=== PATIENT | female | born 1995 | race American Indian/Alaskan Native ===

== ENCOUNTER 2017-04-02 10:48 | Emergency (ER) | payer OTHER ==
[2017-04-02 10:51] VITALS: BMI 31.8
[2017-04-02] MEDS ORDERED: Sodium Chloride 0.9% 1,000 ML IV STA (11:24)
--- NOTE | 2017-04-02 11:29 | ED PDOC ---
HPI: Abdomen Time Seen by Provider: 04/02/17 11:02 Chief Complaint (Nursing): Abdominal Pain Chief Complaint (Provider): Abdominal Pain History Per: Patient History/Exam Limitations: no limitations Onset/Duration Of Symptoms: Hrs (since this morning) Current Symptoms Are (Timing): Still Present Additional Complaint(s): 21y/o female presents to the ED complaining of vomiting and crampy abdominal pain. She states having 5 episodes of vomiting (non-bloody) since morning. Denies fever, sick contact, diarrhea or any further medical complaints. Past Medical History Reviewed: Historical Data, Nursing Documentation, Vital Signs Vital Signs: Last Vital Signs Temp 97 F L 04/02/17 14:08 Pulse 78 04/02/17 14:08 Resp 18 04/02/17 14:08 BP 130/78 04/02/17 14:08 Pulse Ox 98 04/02/17 14:08 - Family History Family History: States: Unknown Family Hx - Social History Current smoker - smoking cessation education provided: Yes (some days smoker) Alcohol: Social Drugs: Denies - Immunization History Hx Tetanus Toxoid Vaccination: Yes Hx Influenza Vaccination: Yes Hx Pneumococcal Vaccination: No - Home Medications Home Medications: Ambulatory Orders Medication Instructions Recorded Ibuprofen 1 tab PO TID PRN #30 tab 06/27/13 Hydrocortisone [Hydrocortisone 1% 30 ml TP BID #1 lot 12/05/14 Lotion 60 ml] Ibuprofen [Motrin] 400 mg PO Q6H PRN #20 tab 04/15/15 Ondansetron ODT [Zofran ODT] 4 mg PO Q8H PRN #20 odt 04/02/17 - Allergies Allergies/Adverse Reactions: Allergies Allergy/AdvReac Type Severity Reaction Status Date / Time No Known Allergies Allergy Unverified 06/27/13 10:48 Review of Systems ROS Statement: Except As Marked, All Systems Reviewed And Found Negative (As per HPI, otherwise negative) Constitutional: Negative for: Fever Gastrointestinal: Positive for: Vomiting, Abdominal Pain. Negative for: Diarrhea Physical Exam - Reviewed Nursing Documentation Reviewed: Yes Vital Signs Reviewed: Yes - Physical Exam Appears: Positive for: Non-toxic, No Acute Distress Head Exam: Positive for: ATRAUMATIC, NORMOCEPHALIC Skin: Positive for: Normal Color, Warm, Dry Eye Exam: Positive for: Normal appearance, EOMI, PERRL Neck: Positive for: Normal, Painless ROM, Supple Cardiovascular/Chest: Positive for: Regular Rate, Rhythm, Tachycardia. Negative for: Murmur Gastrointestinal/Abdominal: Negative for: Tenderness, Distended Neurologic/Psych: Positive for: Alert, Oriented (x3) - Laboratory Results Result Diagrams: 04/02/17 11:30 04/02/17 11:30 - ECG O2 Sat by Pulse Oximetry: 100 (RA) Pulse Ox Interpretation: Normal Medical Decision Making Medical Decision Making: Time: 11:24 Initial Impression: Gastritis Plan: CMP Lipase Urine dipstick CBC w/ diff Sodium chloride 1L IV Zofran 4mg IV Urinalysis Reevaluation Scribe Attestation: Documented by Juany Robert acting as a scribe for Manisha Hernandez MD. Scribe Attestation: All medical record entries made by the Scribe were at my direction and personally dictated by me. I have reviewed the chart and agree that the record accurately reflects my personal performance of the history, physical exam, medical decision making, and the department course for this patient. I have also personally directed, reviewed, and agree with the discharge instructions and disposition. Disposition - Clinical Impression Clinical Impression: Vomiting - Disposition Referrals: Billy Villegas MD [Family Provider] - Disposition: Routine/Home Disposition Time: 13:41 Condition: IMPROVED Prescriptions: Ondansetron ODT [Zofran ODT] 4 mg PO Q8H PRN #20 odt PRN Reason: Nausea/Vomiting Instructions: Acute Nausea and Vomiting (ED) Forms: [employer] ([place])
[2017-04-02 11:51] LABS: ALB/GLOB RATIO 1.4 (1.0-2.1); ALKALINE PHOSPHATASE 53 U/L (38-126); ALT/SGPT 45 U/L (9-52); AST/SGOT 34 U/L (14-36); BILIRUBIN,TOTAL 0.4 mg/dl (0.2-1.3); BLOOD UREA NITROGEN 7 mg/dl (7-17); CARBON DIOXIDE 25 mmol/L (22-30); CHLORIDE 108 mmol/L (98-107); GFR AFRICAN-AMERICAN > 60; GLUCOSE,RANDOM 101 mg/dL (65-105); LIPASE 109 U/L (23-300); POTASSIUM 4.2 MMOL/L (3.6-5.0); SODIUM 147 mmol/l (132-148); TOTAL PROTEIN 7.7 G/DL (6.3-8.2)
[2017-04-02 11:52] LABS: BASO % 0.4 % (0.0-2.0); EOS % 0.3 % (0.0-4.0); HEMATOCRIT 35.6 % (34.0-47.0); LYMPH # 1.3 K/uL (1.0-4.3); LYMPH % 15.3 % (20.0-40.0); MEAN CELL VOLUME 76.6 fl (81.0-99.0); MEAN CORPUSCULAR HEMOGLOBIN 24.6 pg (27.0-31.0); MEAN CORPUSCULAR HGB CONC 32.1 g/dL (33.0-37.0); MEAN PLATELET VOLUME 7.8 fl (7.2-11.7); MONO # 0.2 K/uL (0.0-0.8); NEUT # 6.7 K/uL (1.8-7.0); RED CELL DISTRIBUTION WIDTH 16.5 % (11.5-14.5); WHITE BLOOD COUNT 8.3 K/uL (4.8-10.8)
[2017-04-02 12:10] LABS: RBC URINE 1 /hpf (0-3); URINE BACTERIA RARE (<OCC); URINE BILIRUBIN NEGATIVE (NEGATIVE); URINE BLOOD MODERATE (NEGATIVE); URINE COLOR YELLOW (YELLOW); URINE GLUCOSE (UA) NEG (Normal); URINE KETONE NEGATIVE (NEGATIVE); URINE LEUKOCYTE ESTERASE TRACE Leu/uL (Negative); URINE PROTEIN 100 mg/dL (NEGATIVE); URINE UROBILINOGEN 0.2-1.0 mg/dL (0.2-1.0); WBC URINE 2 /hpf (0-5)
[2017-04-02 14:09] VITALS: BP 130/78; PULSE 78; RESP 18; TEMP 97
[2017-04-05 22:45] VITALS: O2SAT 100
== END 2017-04-02 14:10 | disposition home or self-care (01) ==
LOC: H.ER 10:48
DX: K52.9 Noninfective gastroenteritis and colitis, unspecified (principal)
CPT/HCPCS: 80053; 81003; 81025; 83690; 85025; 96374; 99282; J2405; J7040

== ENCOUNTER 2017-10-09 17:32 | Emergency (ER) | payer OTHER ==
[2017-10-09 18:34] VITALS: BP 114/73; PULSE 80; RESP 20; TEMP 97.9; O2SAT 100; BMI 33.8
--- NOTE | 2017-10-09 19:45 | ED PDOC ---
HPI: Allergic Reaction Time Seen by Provider: 10/09/17 18:39 Chief Complaint (Nursing): Allergic Reaction Chief Complaint (Provider): rash History Per: Patient History/Exam Limitations: no limitations Onset/Duration Of Symptoms: Days (2), Gradual, Persistent Associated Symptoms: Skin Rash, Swelling (lip) Additional Complaint(s): 22yo with eczema on multiple medications reporting rash on bilateral arms and lip swelling since yesterday. Recently started seeing paper grader and is currently taking Ketoconazole cream , lamotrigine cream, diflucan, minocycline. Reports that she also may have eaten tomato yesterday and may have an allergy to tomato. Past Medical History Reviewed: Historical Data, Nursing Documentation, Vital Signs Vital Signs: Last Vital Signs Temp 97.9 F 10/09/17 18:33 Pulse 80 10/09/17 18:33 Resp 20 10/09/17 18:33 BP 114/73 10/09/17 18:33 Pulse Ox 100 10/09/17 18:33 - Medical History Other PMH: Eczema - Surgical History Surgical History: No Surg Hx - Family History Family History: States: Unknown Family Hx - Immunization History Hx Tetanus Toxoid Vaccination: Yes Hx Influenza Vaccination: Yes Hx Pneumococcal Vaccination: No - Home Medications Home Medications: Ambulatory Orders Medication Instructions Recorded Ibuprofen 1 tab PO TID PRN #30 tab 06/27/13 Hydrocortisone [Hydrocortisone 1% 30 ml TP BID #1 lot 12/05/14 Lotion 60 ml] Ibuprofen [Motrin] 400 mg PO Q6H PRN #20 tab 04/15/15 Ondansetron ODT [Zofran ODT] 4 mg PO Q8H PRN #20 odt 04/02/17 DiphenhydrAMINE [Benadryl] 25 mg PO TID #20 cap 10/10/17 predniSONE [predniSONE Tab] 40 mg PO DAILY #8 tab 10/10/17 - Allergies Allergies/Adverse Reactions: Allergies Allergy/AdvReac Type Severity Reaction Status Date / Time No Known Allergies Allergy Unverified 10/10/17 00:03 Review of Systems ROS Statement: Except As Marked, All Systems Reviewed And Found Negative Constitutional: Negative for: Fever, Chills ENT: Positive for: Mouth Swelling. Negative for: Nose Discharge Skin: Positive for: Rash, Lesions Physical Exam - Reviewed Nursing Documentation Reviewed: Yes Vital Signs Reviewed: Yes - Physical Exam Appears: Positive for: No Acute Distress, Uncomfortable Head Exam: Positive for: ATRAUMATIC, NORMOCEPHALIC Skin: Positive for: Warm, Dry, Rash (dry erythema to bilateral upper arms, also with acne-like lesions to face and mild lower lip edema) Eye Exam: Positive for: EOMI, PERRL Respiratory: Positive for: Normal Breath Sounds. Negative for: Wheezing Extremity: Negative for: Pedal Edema, Deformity Lymphatic: Negative for: Adenopathy Neurologic/Psych: Positive for: Alert. Negative for: Motor/Sensory Deficits - ECG O2 Sat by Pulse Oximetry: 100 Disposition - Clinical Impression Clinical Impression: Eczema, Acute allergic reaction - Disposition Disposition: Left W/O Treatment Disposition Time: 19:56 Condition: UNKNOWN
[2017-10-10] MEDS ORDERED: DiphenhydrAMINE 50 mg/ml Inj ONE (03:26)
[2017-10-10] MEDS ORDERED: Famotidine 20mg/50ml 20 MG/50 ML BAG IVPB ONE (03:26)
== END 2017-10-09 19:20 | disposition home or self-care (01) ==
LOC: H.ER 17:32
DX: L30.9 Dermatitis, unspecified (principal); T78.40XA Allergy, unspecified, initial encounter

== ENCOUNTER 2017-10-09 23:56 | Emergency (ER) | payer OTHER ==
[2017-10-09 23:57] VITALS: BMI 33.8
[2017-10-10 00:06] VITALS: O2SAT 100
[2017-10-10] MEDS ORDERED: DiphenhydrAMINE 50 mg/ml Inj IVP STA (02:59)
[2017-10-10] MEDS ORDERED: Famotidine 20mg/50ml Premix IVPB STA (02:59)
--- NOTE | 2017-10-10 04:19 | ED PDOC ---
HPI: Allergic Reaction Time Seen by Provider: 10/10/17 01:59 Chief Complaint (Nursing): Allergic Reaction Chief Complaint (Provider): Allergic Reaction History Per: Patient History/Exam Limitations: no limitations Onset/Duration Of Symptoms: Days (x2) Current Symptoms Are (Timing): Still Present Additional Complaint(s): 22 y/o female with no significant pmhx, who presents to ED for evaluation of allergic reaction x2 days. Patient reports has been taking Topical Metronidazole and Topical Ketoconazole since 09/19 as prescribed by her Retort Loader for a facial rash. Patient also reports Monday afternoon she ate stuffed peppers with tomato sauce. She states she is allergic to tomatoes, but sometimes eats tomato based sauces such as tomato sauce and ketchup without reaction. Patient reports after she ate the food she felt swelling under her chin, and the following day she had a swollen lower lip and hives on her body. Patient states the hives are better at this time and reports she has taken no medication for her symptoms. Patient states she wishes to know if the swelling is due to the tomato sauce or her topical ointments. Reports no chest pain, SOB , fever, URI, vomiting. Has no other complaints. Past Medical History Reviewed: Historical Data, Nursing Documentation, Vital Signs Vital Signs: Last Vital Signs Temp 97.8 F 10/10/17 00:03 Pulse 76 10/10/17 00:03 Resp 18 10/10/17 00:03 BP 115/79 10/10/17 00:03 Pulse Ox 100 10/10/17 00:03 - Medical History PMH: No Chronic Diseases - Surgical History Surgical History: No Surg Hx - Family History Family History: States: Unknown Family Hx - Immunization History Hx Tetanus Toxoid Vaccination: Yes Hx Influenza Vaccination: Yes Hx Pneumococcal Vaccination: No - Home Medications Home Medications: Ambulatory Orders Medication Instructions Recorded Ibuprofen 1 tab PO TID PRN #30 tab 06/27/13 Hydrocortisone [Hydrocortisone 1% 30 ml TP BID #1 lot 12/05/14 Lotion 60 ml] Ibuprofen [Motrin] 400 mg PO Q6H PRN #20 tab 04/15/15 Ondansetron ODT [Zofran ODT] 4 mg PO Q8H PRN #20 odt 04/02/17 DiphenhydrAMINE [Benadryl] 25 mg PO TID #20 cap 10/10/17 predniSONE [predniSONE Tab] 40 mg PO DAILY #8 tab 10/10/17 - Allergies Allergies/Adverse Reactions: Allergies Allergy/AdvReac Type Severity Reaction Status Date / Time No Known Allergies Allergy Unverified 10/10/17 00:03 Review of Systems ROS Statement: Except As Marked, All Systems Reviewed And Found Negative ENT: Positive for: Mouth Swelling (lower lip) Skin: Positive for: Rash (hives) Physical Exam - Reviewed Nursing Documentation Reviewed: Yes Vital Signs Reviewed: Yes - Physical Exam Comments: GENERAL APPEARANCE: Patient is awake, alert, oriented x 3, in no acute distress SKIN: (+) 2 hives, 1 on each shoulder. Otherwise (-) excoriations, (-) drainage , (-) crusting of lesions is present. HENT: (-) conjunctival injection, (-) chemosis. (+) Lower lip edema, more promiment on right side. Oropharynx: clear, (-) tonsillar exudates, (-) erythema. Speaking full sentences. Airway: patent (-) stridor, (-) hoarseness. Mucous membranes moist. Nares: Patent (-) rhinorrhea. NECK: (-) lymphadenopathy, (-) tenderness. CARDIOVASCULAR: Normal rate and rhythm. (-) murmur, (-) gallop. CHEST: (-) rales, (-) wheezing, (-) dyspnea, (-) stridor. Breath sounds equal bilaterally. ABDOMEN: Soft. (-) tenderness, (-) distention, (-) HSM. NEURO: Mental status: Patient is alert, oriented, and with normal strength and tone. - ECG O2 Sat by Pulse Oximetry: 100 (RA) Pulse Ox Interpretation: Normal Disposition - Clinical Impression Clinical Impression: Allergic reaction - Patient ED Disposition Is Patient to be Admitted: No Counseled Patient/Family Regarding: Diagnosis, Need For Followup, Rx Given - Disposition Referrals: Billy Villegas MD [Primary Care Provider] - Disposition: Routine/Home Disposition Time: 05:20 Condition: STABLE Additional Instructions: Thank you for letting us take care of you today. You were treated for allergic reaction - food. The emergency medical care you received today was directed at your acute symptoms. If you were prescribed any medication, please fill it and take as directed. It may take several days for your symptoms to resolve. Return to the Emergency Department if your symptoms worsen, do not improve, or if you have any other problems. Please contact your doctor in 2 days for re-evaluation and follow up. Bring any paperwork you were given at discharge with you along with any medications you are taking to your follow up visit. Our treatment cannot replace ongoing medical care by a primary care provider (PCP) outside of the emergency department. Thank you for allowing the [facility] team to be part of your care today. Prescriptions: DiphenhydrAMINE [Benadryl] 25 mg PO TID #20 cap predniSONE [predniSONE Tab] 40 mg PO DAILY #8 tab Instructions: Food Allergy Forms: [employer] ([place]) Medical Decision Making Medical Decision Making: Plan: --Benadryl 50mg IVP --Pepcid 20mg PO --Pepcid 20mg IVPB --Solu-Medrol 125mg IM --IV Insertion --Reevaluation On re-evaluation, patient denies any increase in lip swelling, throat/tongue swelling, dyspnea or SOB. On exam, patient remains AAOx3, in no acute distress. Physical exam is unchanged. Diagnosis of allergic reaction to food d/w the patient. Based on history, exam and diagnostic results, plan will be for outpatient follow up. Patient instructed to follow-up with pmd the clinic in 1-2 days without fail. Advised to take medication as prescribed. Return to the emergency room at any time for any new or worsening symptoms. Patient states she fully agrees with and understands discharge instructions. States that she agrees with the plan and disposition. Verbalized and repeated discharge instructions and plan. I have given the patient opportunity to ask any additional questions. Scribe Attestation: Documented by Jere Silva, acting as a scribe for Sarah Segura PA-C. Provider Scribe Attestation: All medical record entries made by the Joey were at my direction and personally dictated by me. I have reviewed the chart and agree that the record accurately reflects my personal performance of the history, physical exam, medical decision making, and the department course for this patient. I have also personally directed, reviewed, and agree with the discharge instructions and disposition.
[2017-10-10 06:42] VITALS: BP 102/65; PULSE 73; RESP 16; TEMP 98.4
== END 2017-10-10 06:43 | disposition home or self-care (01) ==
LOC: H.ER 23:56
DX: T78.40XA Allergy, unspecified, initial encounter (principal)
CPT/HCPCS: 96372; 96374; 99283; J1200; J2930

== ENCOUNTER 2017-10-24 19:03 | Emergency (ER) | payer OTHER ==
[2017-10-24 19:04] VITALS: BMI 33.8
[2017-10-24 19:29] VITALS: BP 112/71; PULSE 85; RESP 16; TEMP 98.3; O2SAT 100
--- NOTE | 2017-10-24 19:56 | ED PDOC ---
HPI: Female Pain Time Seen by Provider: 10/24/17 19:36 Chief Complaint (Nursing): Female Genitourinary Chief Complaint (Provider): Vaginal Bleeding History Per: Patient History/Exam Limitations: no limitations Onset/Duration Of Symptoms: Days Current Symptoms Are (Timing): Intermittent Episodes Associated Symptoms: denies: Fever, Urinary Symptoms Additional Complaint(s): 22 year old female presents to the ED for intermittent vaginal bleeding onset for 4 weeks. She reports the bleeding started while taking her medication for eczema which she has completed. Patient states the vaginal discharge is brown and there are blood clots. Also reports the vaginal bleeding has occurred in the past after her normal menstruation but it resolved spontaneously. Denies problems urinating, fever, chest pain, shortness of breath, headache, and dizziness. PMD: Billy Villegas Abnormal Vaginal Bleeding: Yes Past Medical History Reviewed: Historical Data, Nursing Documentation, Vital Signs Vital Signs: Last Vital Signs Temp 98.3 F 10/24/17 19:26 Pulse 85 10/24/17 19:26 Resp 16 10/24/17 19:26 BP 112/71 10/24/17 19:26 Pulse Ox 100 10/24/17 19:26 - Medical History PMH: No Chronic Diseases - Family History Family History: States: Unknown Family Hx - Immunization History Hx Tetanus Toxoid Vaccination: Yes Hx Influenza Vaccination: Yes Hx Pneumococcal Vaccination: No - Home Medications Home Medications: Ambulatory Orders Medication Instructions Recorded Ibuprofen 1 tab PO TID PRN #30 tab 06/27/13 Hydrocortisone [Hydrocortisone 1% 30 ml TP BID #1 lot 12/05/14 Lotion 60 ml] Ibuprofen [Motrin] 400 mg PO Q6H PRN #20 tab 04/15/15 Ondansetron ODT [Zofran ODT] 4 mg PO Q8H PRN #20 odt 04/02/17 DiphenhydrAMINE [Benadryl] 25 mg PO TID #20 cap 10/10/17 predniSONE [predniSONE Tab] 40 mg PO DAILY #8 tab 10/10/17 - Allergies Allergies/Adverse Reactions: Allergies Allergy/AdvReac Type Severity Reaction Status Date / Time minocycline Allergy RASH Verified 10/24/17 19:26 Review of Systems ROS Statement: Except As Marked, All Systems Reviewed And Found Negative Constitutional: Negative for: Fever Cardiovascular: Negative for: Chest Pain Respiratory: Negative for: Shortness of Breath Genitourinary Female: Positive for: Vaginal Bleeding Neurological: Negative for: Headache, Dizziness Physical Exam - Reviewed Nursing Documentation Reviewed: Yes Vital Signs Reviewed: Yes - Physical Exam Appears: Positive for: Well, Non-toxic, No Acute Distress Head Exam: Positive for: ATRAUMATIC, NORMAL INSPECTION, NORMOCEPHALIC Skin: Positive for: Normal Color, Warm, Dry Eye Exam: Positive for: EOMI, Normal appearance, PERRL ENT: Positive for: Normal ENT Inspection Neck: Positive for: Normal, Painless ROM, Supple. Negative for: Decreased ROM Cardiovascular/Chest: Positive for: Regular Rate, Rhythm. Negative for: Murmur Respiratory: Positive for: Normal Breath Sounds. Negative for: Decreased Breath Sounds, Accessory Muscle Use, Respiratory Distress Gastrointestinal/Abdominal: Positive for: Normal Exam, Bowel Sounds, Soft. Negative for: Tenderness, Guarding, Rebound Back: Positive for: Normal Inspection. Negative for: L CVA Tenderness, R CVA Tenderness Extremity: Positive for: Normal ROM. Negative for: Tenderness, Pedal Edema, Deformity Neurologic/Psych: Positive for: Alert, Oriented (x3). Negative for: Motor/ Sensory Deficits - Laboratory Results Result Diagrams: 10/24/17 20:34 10/24/17 20:34 - ECG O2 Sat by Pulse Oximetry: 100 (RA) Pulse Ox Interpretation: Normal - Progress ED Course And Treament: 2121: Stable. AAOx3. Pain free. Tolerated po. Fu with pcp. Medical Decision Making Medical Decision Making: Time: 1944 Initial Impression: vaginal bleeding Initial Plan: --BMP --ED Urine (POC) --ED Urine Dip --CBC w/ Differential --Reevaluation Scribe Attestation: Documented by Mikki Ferrer, acting as a scribe for Peña Lindsey MD Provider Scribe Attestation: All medical record entries made by the Scribe were at my direction and personally dictated by me. I have reviewed the chart and agree that the record accurately reflects my personal performance of the history, physical exam, medical decision making, and the department course for this patient. I have also personally directed, reviewed, and agree with the discharge instructions and disposition. Disposition - Clinical Impression Clinical Impression: Dysfunctional uterine bleeding - Patient ED Disposition Is Patient to be Admitted: No Counseled Patient/Family Regarding: Studies Performed, Diagnosis, Need For Followup - Disposition Referrals: [facility] [Outside] - 10/25/17 [facility] [Outside] - 10/25/17 Disposition: Routine/Home Disposition Time: 21:23 Condition: STABLE Additional Instructions: Return if not better in 3 days. Instructions: Heavy Periods
[2017-10-24 20:48] LABS: BLOOD UREA NITROGEN 8 mg/dl (7-17); CALCIUM 8.8 mg/dL (8.4-10.2); GFR AFRICAN-AMERICAN > 60; GFR NON-AFRICAN AMERICAN > 60
[2017-10-24 20:49] LABS: BASO # 0.1 K/uL (0.0-0.2); BASO % 0.5 % (0.0-2.0); EOS # 0.1 K/uL (0.0-0.7); HEMOGLOBIN 10.6 g/dL (12.0-16.0); LYMPH # 2.3 K/uL (1.0-4.3); LYMPH % 23.3 % (20.0-40.0); MEAN CELL VOLUME 78.6 fl (81.0-99.0); MEAN CORPUSCULAR HEMOGLOBIN 24.7 pg (27.0-31.0); MEAN CORPUSCULAR HGB CONC 31.4 g/dL (33.0-37.0); MEAN PLATELET VOLUME 8.4 fl (7.2-11.7); MONO # 0.4 K/uL (0.0-0.8); MONO % 3.6 % (0.0-10.0); NEUT # 7.2 K/uL (1.8-7.0); NEUT % 71.6 % (50.0-75.0); RBC 4.3 Mil/uL (3.80-5.20); RED CELL DISTRIBUTION WIDTH 16.6 % (11.5-14.5)
== END 2017-10-24 21:40 | disposition home or self-care (01) ==
LOC: H.ER 19:03
DX: N93.9 Abnormal uterine and vaginal bleeding, unspecified (principal)